=== PATIENT | female | born 1965 ===

== ENCOUNTER 2021-02-15 06:00 | Day surgery (SDC) | payer OTHER ==
[~2021-02-15 06:00] MED LIST: ACETAMINOPHEN325 M1 PO; IBU400 MG PO; MULTIPLE VITAM1 EAC2 PO
[2021-02-15] MEDS ORDERED: PERCOCET 5-3251 EACH PO (08:52)
[2021-02-15] MEDS ORDERED: NEURONTIN300 MG PO (08:53)
[2021-02-15] MEDS ORDERED: DERMOPLAST PAIN78 GM TOP (08:53)
== END 2021-02-15 13:25 | disposition home or self-care (01) ==
LOC: CIR.AMB 06:00
PROVIDERS: ATTEND Surgery
DX: A63.0 Anogenital (venereal) warts (principal); N84.2 Polyp of vagina; Z20.822 Contact with and (suspected) exposure to COVID-19